=== PATIENT | female | born 1950 | race Caucasian/White ===

== ENCOUNTER 2021-11-26 07:36 | Emergency (ER) | payer OTHER, SELFPAY ==
--- NOTE | 2021-11-26 | CRLHL7_ITS ---
For Patients: As a result of the Century Cures Act, medical imaging exams and procedure reports are released immediately into your electronic medical record. You may view this report before your referring provider. If you have questions, please contact your health care provider. INDICATION: Altered mental status. TECHNIQUE: CT of the head without contrast. Coronal and sagittal reformats are included. COMPARISON: No comparisons. FINDINGS: Postsurgical changes of bilateral frontal approach electrode stimulators, with tips terminate in the approximate region of the subthalamic nuclei. Mild gliosis along the electrode tracts. Small bilateral kathy hole sites. Right suboccipital craniectomy site is also noted. Beam hardening artifact from metallic hardware limits evaluation of adjacent regions. Accounting for this, no evidence of acute infarct. No loss of de la garza white matter differentiation. No hyperdense vessels to suggest intracranial thrombus. No acute intracranial hemorrhage. No mass effect or midline shift. No hydrocephalus or extra-axial collections. Scattered white matter hypoattenuation, typical for chronic microvascular ischemic change. Mild to moderate generalized parenchymal volume loss. No acute osseous abnormalities. Mastoid air cells and paranasal sinuses are clear. Normal soft tissues. IMPRESSION: 1. Examination mildly limited by beam hardening artifact from metallic hardware detailed above. Allowing for this, no acute intracranial pathology. Please note that all CT scans at this facility use dose modulation, iterative reconstruction, and/or weight-based dosing when appropriate to reduce radiation dose to as low as reasonably achievable. Dictated by Gavin Cai MD @ 11/26/2021 8:16:57 AM (Electronically Signed)
--- NOTE | 2021-11-26 07:38 | ED_ITS ---
HPI - Neuro Symptoms/Deficit General Time Seen by Provider: 07:32 <Sharonda Titus MD - Last Filed: 12/01/21 02:37> Date Seen: 11/26/21 <Sharonda Titus MD - Last Filed: 12/01/21 02:37> Chief Complaint: Neuro Symptoms/Altered Deficit <Sharonda Titus MD - Last Filed: 12/01/21 02:37> Stated Complaint: Stroke <Sharonda Titus MD - Last Filed: 12/01/21 02:37> Time Seen by Provider: 11/26/21 07:38 <Sharonda Titus MD - Last Filed: 12/01/21 02:37> Source: patient <Sharonda Titus MD - Last Filed: 12/01/21 02:37> Mode of arrival: EMS <Sharonda Titus MD - Last Filed: 12/01/21 02:37> Limitations: no limitations <Sharonda Titus MD - Last Filed: 12/01/21 02:37> History of Present Illness HPI Narrative: Iliana is a 71-year-old female with a history of Parkinson's, brain stimulator and fall 1 month ago who is brought to the [facility] by EMS for evaluation regarding left-sided weakness difficulty with hand finisher strength bilaterally and right facial droop. EMS notes that history was very hard to obtain. states that Jada usually walks around but Iliana states that everything is fairly normal. Upon her arrival in the emergency room she states that this morning when she woke up she could not hand finisher with either of her hands and that she does have a history of pain on her left wrist. She notes that she is better right now. She states that it is time for her to take her Parkinson's medications. She has not had any recent cough cold congestion. She tells me that she cannot have IV contrast or an MRI. She is allergic to IV contrast and because of her nerve stimulator she cannot have an MRI. <Sharonda Titus MD - Last Filed: 12/01/21 02:37> Related Data Home Medications: Home Medications Medication Instructions Recorded Confirmed carbidopa 25 mg-levodopa 100 mg 0.5 tab PO Q2H 11/26/21 11/26/21 tablet carbidopa ER 23.75 mg-levodopa 95 2 cap PO Q2H 11/26/21 11/26/21 mg capsule,extended release (Rytary) clonazepam 1 mg tablet 0.5 mg PO HS PRN 11/26/21 11/26/21 cyclosporine 0.05 % eye drops in a drp OPHTHALMIC (EYE) DAILY 11/26/21 dropperette (Restasis) lorazepam 1 mg tablet PO DAILY 11/26/21 polyethylene glycol 3350 17 17 g PO DAILY PRN 11/26/21 11/26/21 gram/dose oral powder <Sharonda Titus MD - Last Filed: 12/01/21 02:37> Allergies/Adverse Reactions: Allergies Allergy/AdvReac Type Severity Reaction Status Date / Time iodine Allergy Verified 11/26/21 07:53 Sulfa (Sulfonamide Allergy Verified 11/26/21 07:53 Antibiotics) <Sharonda Titus MD - Last Filed: 12/01/21 02:37> [facility] Social History: Social History Smoking Status: Former smoker Do you use any of these nicotine containing products: None Second hand tobacco smoke exposure: No How often do you have a drink containing alcohol: monthly or less How many standard drinks containing alcohol do you have on a typical day: 1 or 2 How often do you have six or more drinks on one occasion: Never AUDIT-C Alcohol total score: 1 Non-prescribed substance use: denies use service: No <Sharonda Titus MD - Last Filed: 12/01/21 02:37> Exam Const: Vital Signs, click to edit/add: Vital Signs - 24 hr 11/26/21 07:44 Temperature 97.3 F L Pulse Rate [Left P ulse Oximeter] 80 Respiratory Rate 16 Blood Pressure [Ri ght Upper Arm] 106/68 Pulse Oximetry 96 <Sharonda Titus MD - Last Filed: 12/01/21 02:37> Vital Signs, click to edit/add: Vital Signs - 24 hr 11/26/21 07:44 Temperature 97.3 F L Pulse Rate [Left P ulse Oximeter] 80 Respiratory Rate 16 Blood Pressure [Ri ght Upper Arm] 106/68 Pulse Oximetry 96 <Roosevelt Hackett MD - Last Filed: 11/26/21 08:36> Course Vital Signs Vital signs: Initial Vital Signs Temperature 97.3 F L 11/26/21 07:44 Temperature Source Temporal Artery Scan 11/26/21 07:44 Pulse Rate 80 11/26/21 07:44 Pulse Rhythm 11/26/21 07:44 Pulse Strength 3+ Normal 11/26/21 07:44 Respiratory Rate 16 11/26/21 07:44 Blood Pressure 106/68 11/26/21 07:44 Blood Pressure Mean 80 11/26/21 07:44 Blood Pressure Position Supine 11/26/21 07:44 Pulse Oximetry 96 11/26/21 07:44 Oxygen Delivery Method 11/26/21 07:44 Vital Signs Temperature 97.3 F L 11/26/21 07:44 Pulse Rate 80 11/26/21 07:44 Respiratory Rate 16 11/26/21 07:44 Blood Pressure 106/68 11/26/21 07:44 Pulse Oximetry 96 11/26/21 07:44 Temperature 97.3 F L 11/26/21 07:44 Pulse Rate 95 11/26/21 09:30 Respiratory Rate 20 11/26/21 09:30 Blood Pressure 111/69 11/26/21 09:30 Pulse Oximetry 97 11/26/21 09:30 <Sharonda Titus MD - Last Filed: 12/01/21 02:37> Initial Vital Signs Temperature 97.3 F L 11/26/21 07:44 Temperature Source Temporal Artery Scan 11/26/21 07:44 Pulse Rate 80 11/26/21 07:44 Pulse Rhythm 11/26/21 07:44 Pulse Strength 3+ Normal 11/26/21 07:44 Respiratory Rate 16 11/26/21 07:44 Blood Pressure 106/68 11/26/21 07:44 Blood Pressure Mean 80 11/26/21 07:44 Blood Pressure Position Supine 11/26/21 07:44 Pulse Oximetry 96 11/26/21 07:44 Oxygen Delivery Method 11/26/21 07:44 Vital Signs Temperature 97.3 F L 11/26/21 07:44 Pulse Rate 80 11/26/21 07:44 Respiratory Rate 16 11/26/21 07:44 Blood Pressure 106/68 11/26/21 07:44 Pulse Oximetry 96 11/26/21 07:44 Temperature 97.3 F L 11/26/21 07:44 Pulse Rate 95 11/26/21 09:30 Respiratory Rate 20 11/26/21 09:30 Blood Pressure 111/69 11/26/21 09:30 Pulse Oximetry 97 11/26/21 09:30 <Roosevelt Hackett MD - Last Filed: 11/26/21 08:36> MDM - Neuro Symptoms/Deficit MDM Narrative Medical decision making narrative: X-ray by my read shows a Colles type fracture with distal radial fracture and ulnar styloid, minimally displaced dorsally. The procedure because of its position will put her in a splint thumb spica and have her follow up with Ortho in 3-4 days. Lanse given orally now will proceed write a prescription for Lanse. May use Advil as well, light activity, splint precautions, the splint was applied by myself a thumb spica splint with Orthoglass and Julius wrap. <Roosevelt Hackett MD - Last Filed: 11/26/21 08:36> Lab Data Labs: Lab Results 11/26/21 11/26/21 11/26/21 Range/Units 08:33 08:33 08:33 WBC 5.85 (4.50-11.00) K/uL RBC 4.32 (4.00-5.20) m/uL Hgb 13.3 (12.0-16.0) gm/dL Hct 40.8 (33.0-51.0) % MCV 94 (80-100) fL MCH 31 (26-34) pg MCHC 33 (32-36) gm/dL RDW Coeff of Valeria 13.8 (11.5-15.5) % Plt Count 233 (140-440) K/uL Neut % (Auto) 54.8 (42.0-72.0) % Lymph % (Auto) 35.6 (20-44) % Stephenson % (Auto) 7.2 (0.0-11.0) % Eos % (Auto) 1.9 (0.0-7.0) % Baso % (Auto) 0.3 (0.0-3.0) % Neut # (Auto) 3.21 (1.7-7.0) K/uL Lymph # (Auto) 2.08 (0.90-2.90) K/uL Stephenson # (Auto) 0.40 (0.00-0.90) K/UL Eos # (Auto) 0.11 (0.00-0.50) K/uL Baso # (Auto) 0.02 (0.00-0.30) K/uL Abs Immat Gran (auto) 0.01 (0.00-0.30) K/uL Sodium 140 (135-149) mmol/L Potassium 3.7 (3.6-5.1) mmol/L Chloride 107 (96-114) mmol/L Carbon Dioxide 30 (20-32) mmol/L BUN 29 (7-30) mg/dL Creatinine 0.6 (0.5-1.5) mg/dL Estimated Creat Clear 35.61 Estimated GFR 97 ml/min Glucose 88 (60-115) mg/dL Calcium 9.5 (8.4-10.6) mg/dL SARS-CoV-2 (PCR) (Negative) POC Troponin I 0.00 L (0.01-0.04) ng/ml 11/26/21 Range/Units 09:00 WBC (4.50-11.00) K/uL RBC (4.00-5.20) m/uL Hgb (12.0-16.0) gm/dL Hct (33.0-51.0) % MCV (80-100) fL MCH (26-34) pg MCHC (32-36) gm/dL RDW Coeff of Valeria (11.5-15.5) % Plt Count (140-440) K/uL Neut % (Auto) (42.0-72.0) % Lymph % (Auto) (20-44) % Stephenson % (Auto) (0.0-11.0) % Eos % (Auto) (0.0-7.0) % Baso % (Auto) (0.0-3.0) % Neut # (Auto) (1.7-7.0) K/uL Lymph # (Auto) (0.90-2.90) K/uL Stephenson # (Auto) (0.00-0.90) K/UL Eos # (Auto) (0.00-0.50) K/uL Baso # (Auto) (0.00-0.30) K/uL Abs Immat Gran (auto) (0.00-0.30) K/uL Sodium (135-149) mmol/L Potassium (3.6-5.1) mmol/L Chloride (96-114) mmol/L Carbon Dioxide (20-32) mmol/L BUN (7-30) mg/dL Creatinine (0.5-1.5) mg/dL Estimated Creat Clear Estimated GFR ml/min Glucose (60-115) mg/dL Calcium (8.4-10.6) mg/dL SARS-CoV-2 (PCR) Negative SARS-CoV-2 (Negative) POC Troponin I (0.01-0.04) ng/ml <Sharonda Titus MD - Last Filed: 12/01/21 02:37> Lab Results 11/26/21 11/26/21 11/26/21 Range/Units 08:33 08:33 08:33 WBC 5.85 (4.50-11.00) K/uL RBC 4.32 (4.00-5.20) m/uL Hgb 13.3 (12.0-16.0) gm/dL Hct 40.8 (33.0-51.0) % MCV 94 (80-100) fL MCH 31 (26-34) pg MCHC 33 (32-36) gm/dL RDW Coeff of Valeria 13.8 (11.5-15.5) % Plt Count 233 (140-440) K/uL Neut % (Auto) 54.8 (42.0-72.0) % Lymph % (Auto) 35.6 (20-44) % Stephenson % (Auto) 7.2 (0.0-11.0) % Eos % (Auto) 1.9 (0.0-7.0) % Baso % (Auto) 0.3 (0.0-3.0) % Neut # (Auto) 3.21 (1.7-7.0) K/uL Lymph # (Auto) 2.08 (0.90-2.90) K/uL Stephenson # (Auto) 0.40 (0.00-0.90) K/UL Eos # (Auto) 0.11 (0.00-0.50) K/uL Baso # (Auto) 0.02 (0.00-0.30) K/uL Abs Immat Gran (auto) 0.01 (0.00-0.30) K/uL Sodium 140 (135-149) mmol/L Potassium 3.7 (3.6-5.1) mmol/L Chloride 107 (96-114) mmol/L Carbon Dioxide 30 (20-32) mmol/L BUN 29 (7-30) mg/dL Creatinine 0.6 (0.5-1.5) mg/dL Estimated Creat Clear 35.61 Estimated GFR 97 ml/min Glucose 88 (60-115) mg/dL Calcium 9.5 (8.4-10.6) mg/dL SARS-CoV-2 (PCR) (Negative) POC Troponin I 0.00 L (0.01-0.04) ng/ml 11/26/21 Range/Units 09:00 WBC (4.50-11.00) K/uL RBC (4.00-5.20) m/uL Hgb (12.0-16.0) gm/dL Hct (33.0-51.0) % MCV (80-100) fL MCH (26-34) pg MCHC (32-36) gm/dL RDW Coeff of Valeria (11.5-15.5) % Plt Count (140-440) K/uL Neut % (Auto) (42.0-72.0) % Lymph % (Auto) (20-44) % Stephenson % (Auto) (0.0-11.0) % Eos % (Auto) (0.0-7.0) % Baso % (Auto) (0.0-3.0) % Neut # (Auto) (1.7-7.0) K/uL Lymph # (Auto) (0.90-2.90) K/uL Stephenson # (Auto) (0.00-0.90) K/UL Eos # (Auto) (0.00-0.50) K/uL Baso # (Auto) (0.00-0.30) K/uL Abs Immat Gran (auto) (0.00-0.30) K/uL Sodium (135-149) mmol/L Potassium (3.6-5.1) mmol/L Chloride (96-114) mmol/L Carbon Dioxide (20-32) mmol/L BUN (7-30) mg/dL Creatinine (0.5-1.5) mg/dL Estimated Creat Clear Estimated GFR ml/min Glucose (60-115) mg/dL Calcium (8.4-10.6) mg/dL SARS-CoV-2 (PCR) Negative SARS-CoV-2 (Negative) POC Troponin I (0.01-0.04) ng/ml <Roosevelt Hackett MD - Last Filed: 11/26/21 08:36> Discharge Plan Discharge Clinical Impression: Throat tightness, Parkinson's disease <Sharonda Titus MD - Last Filed: 12/01/21 02:37> Patient Disposition: Home w/ Parent or Adult <Sharonda Titus MD - Last Filed: 12/01/21 02:37> Condition: Improved <Sharonda Titus MD - Last Filed: 12/01/21 02:37> Additional Instructions: continue home meds, recheck neurologist as scheduled <Sharonda Titus MD - Last Filed: 12/01/21 02:37> Activity Level: No Restrictions <Sharonda Titus MD - Last Filed: 12/01/21 02:37> No Restrictions <Roosevelt Hackett MD - Last Filed: 11/26/21 08:36> Discharge Diet: Regular <Sharonda Titus MD - Last Filed: 12/01/21 02:37> Regular <Roosevelt Hackett MD - Last Filed: 11/26/21 08:36> Prescriptions: No Action carbidopa-levodopa 25-100 mg tablet 0.5 tab PO Q2H 0RF Label Comments: TAKE ONE-HALF TABLET BY MOUTH EVERY 2 HOURS WHILE AWAKE AND 1-2 TIMES OVERNIGHT NEEDED. UP TO 10 TIMES/DAY Rytary 23.75-95 mg capsule, extended release 2 cap PO Q2H 0RF Label Comments: TAKE 2 CAPSULES BY MOUTH EVERY 2 HOURS WHILE AWAKE AND 1-2 TIMES OVERNIGHT NEEDED. UP TO 10 TIMES/DAY lorazepam 1 mg tablet PO DAILY 0RF Label Comments: TAKE 1/4 TO 1 TABLET BY MOUTH DAILY NEEDED clonazepam 1 mg tablet 0.5 mg PO HS PRN0RF Label Comments: TAKE 1/2 TO 1 TABLET BY MOUTH AT BEDTIME NEEDED FOR SLEEP cyclosporine [Restasis] 0.05 % dropperette OPHTHALMIC (EYE) DAILY 0RF Label Comments: INSTILL 1 DROP TWICE DAILY TO BOTH EYES polyethylene glycol 3350 17 gram/dose powder 17 g PO DAILY PRN0RF <Sharonda Titus MD - Last Filed: 12/01/21 02:37> Follow Up/Referrals: Kaykay Carranza MD [Primary Care Provider] - <Sharonda Titus MD - Last Filed: 12/01/21 02:37> Stand Alone Forms: MyHealth Info Instructions <Sharonda Titus MD - Last Filed: 12/01/21 02:37>
[2021-11-26 07:44] VITALS: BP 106/68; PULSE 80; RESP 16; TEMP 36.3; O2SAT 96; BMI 18.1
[2021-11-26 08:00] VITALS: BP 108/72; PULSE 78; RESP 16; O2SAT 96
[2021-11-26 08:10] VITALS: BP 127/81; PULSE 80; RESP 20; O2SAT 97
--- NOTE | 2021-11-26 08:13 | ED.NURSE ---
Pt given ice chips, ok per Dr Titus. Up to bsc without assist, urine collected. Dr Marind in to speak with pt.
[2021-11-26 08:20] VITALS: BP 109/67; PULSE 80; RESP 16; O2SAT 97
--- NOTE | 2021-11-26 08:20 | ED_ITS ---
HPI - General Adult General Time Seen by Provider: 08:20 Date Seen: 11/26/21 Chief complaint: Neuro Symptoms/Altered Deficit Stated complaint: Stroke Time Seen by Provider: 11/26/21 07:38 Source: patient Mode of arrival: EMS Limitations: no limitations History of Present Illness HPI narrative: PATIENT IS A 71 WHITE FEMALE WITH PARKINSON'S HAS A DEEP BRAIN STIMULATOR, and has received her care at the [facility]. She also has significant parkinsonism as mention. She has had episodes were she has throat tightening or what sounds like muscle spasm in her neck, typically she wakes up with this. 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 She and her hus band report this feels about the same, her throat tightening is improved, she had no chest pain no shortness of breath no nausea vomiting diaphoresis. The patient has not had are not had a heart history. She has no focal neurologic deficit she feels back to normal as mentioned. Bat exchange of hand off CT scan of the head was done as well as laboratories and EKG ordered. Patient did take lorazepam last night and typically that helps her, she typically wakes up with this symptom, this has happened many times. She has a meeting with her neurologist upcoming in the next week to 10 days. Related Data Home Medications Medication Instructions Recorded Confirmed carbidopa 25 mg-levodopa 100 mg 0.5 tab PO Q2H 11/26/21 11/26/21 tablet carbidopa ER 23.75 mg-levodopa 95 2 cap PO Q2H 11/26/21 11/26/21 mg capsule,extended release (Rytary) clonazepam 1 mg tablet 0.5 mg PO HS PRN 11/26/21 11/26/21 cyclosporine 0.05 % eye drops in a drp OPHTHALMIC (EYE) DAILY 11/26/21 dropperette (Restasis) lorazepam 1 mg tablet PO DAILY 11/26/21 polyethylene glycol 3350 17 17 g PO DAILY PRN 11/26/21 11/26/21 gram/dose oral powder Allergies Allergy/AdvReac Type Severity Reaction Status Date / Time iodine Allergy Verified 11/26/21 07:53 Sulfa (Sulfonamide Allergy Verified 11/26/21 07:53 Antibiotics) Review of Systems Status of ROS: Reports: 10 or more systems reviewed and unremarkable except as noted in History and below [facility] Social History Smoking Status: Former smoker Do you use any of these nicotine containing products: None Second hand tobacco smoke exposure: No How often do you have a drink containing alcohol: monthly or less How many standard drinks containing alcohol do you have on a typical day: 1 or 2 How often do you have six or more drinks on one occasion: Never AUDIT-C Alcohol total score: 1 Non-prescribed substance use: denies use service: No Exam Narrative: Exam Narrative: Objective: Vital signs unremarkable, the patient is in no apparent distress, noncyanotic HEENT shows mild right-sided facial weakness, consistent with what her prior clinical situation has been status post acoustic neuroma removal. Neck supple for range of motion Heart rhythm regular 2/6 systolic ejection murmur Chest is clear Abdomen benign soft Extremities are no edema neurologic nonfocal Skin is unremarkable, warm and dry Const: Vital Signs, click to edit/add: Vital Signs - 24 hr 11/26/21 07:44 Temperature 97.3 F L Pulse Rate [Left P ulse Oximeter] 80 Respiratory Rate 16 Blood Pressure [Ri ght Upper Arm] 106/68 Pulse Oximetry 96 Course Vital Signs Vital signs: Initial Vital Signs Temperature 97.3 F L 11/26/21 07:44 Temperature Source Temporal Artery Scan 11/26/21 07:44 Pulse Rate 80 11/26/21 07:44 Pulse Rhythm 11/26/21 07:44 Pulse Strength 3+ Normal 11/26/21 07:44 Respiratory Rate 16 11/26/21 07:44 Blood Pressure 106/68 11/26/21 07:44 Blood Pressure Mean 80 11/26/21 07:44 Blood Pressure Position Supine 11/26/21 07:44 Pulse Oximetry 96 11/26/21 07:44 Oxygen Delivery Method 11/26/21 07:44 Vital Signs Temperature 97.3 F L 11/26/21 07:44 Pulse Rate 80 11/26/21 07:44 Respiratory Rate 16 11/26/21 07:44 Blood Pressure 106/68 11/26/21 07:44 Pulse Oximetry 96 11/26/21 07:44 Temperature 97.3 F L 11/26/21 07:44 Pulse Rate 80 11/26/21 07:44 Respiratory Rate 16 11/26/21 07:44 Blood Pressure 106/68 11/26/21 07:44 Pulse Oximetry 96 11/26/21 07:44 Medical Decision Making MDM Narrative Medical decision making narrative: Patient has what sounds like muscle spasm in her neck likely cricopharyngeal muscle spasm, she has no residual symptoms at this time. She had no chest pain breathing problem, fevers or chills. The patient feels like she would like to go home and consult with her neurologist defer tests are normal. Due to her tremor and Parkinson's is difficult to get an accurate EKG, but will put her on telemetry will order a point of care troponin CBC Chem profile and follow up the CT scan when it is available. The patient's head CT is limited by artifact but is negative for acute findings, her laboratory studies look reassuring, her troponin is negative. Were unable to get an EKG due the patient's neurostimulator in the amount of artifact is present, but her telemetry looks reassuring. Her throat symptoms have resolved will allow to go home resume wrists same medications and update her neurologist as planned. Thanks Lab Data Labs: Lab Results 11/26/21 11/26/21 11/26/21 Range/Units 08:33 08:33 08:33 WBC 5.85 (4.50-11.00) K/uL RBC 4.32 (4.00-5.20) m/uL Hgb 13.3 (12.0-16.0) gm/dL Hct 40.8 (33.0-51.0) % MCV 94 (80-100) fL MCH 31 (26-34) pg MCHC 33 (32-36) gm/dL RDW Coeff of Valeria 13.8 (11.5-15.5) % Plt Count 233 (140-440) K/uL Neut % (Auto) 54.8 (42.0-72.0) % Lymph % (Auto) 35.6 (20-44) % [place] % (Auto) 7.2 (0.0-11.0) % Eos % (Auto) 1.9 (0.0-7.0) % Baso % (Auto) 0.3 (0.0-3.0) % Neut # (Auto) 3.21 (1.7-7.0) K/uL Lymph # (Auto) 2.08 (0.90-2.90) K/uL [place] # (Auto) 0.40 (0.00-0.90) K/UL Eos # (Auto) 0.11 (0.00-0.50) K/uL Baso # (Auto) 0.02 (0.00-0.30) K/uL Abs Immat Gran (auto) 0.01 (0.00-0.30) K/uL Sodium 140 (135-149) mmol/L Potassium 3.7 (3.6-5.1) mmol/L Chloride 107 (96-114) mmol/L Carbon Dioxide 30 (20-32) mmol/L BUN 29 (7-30) mg/dL Creatinine 0.6 (0.5-1.5) mg/dL Estimated Creat Clear 35.61 Estimated GFR 97 ml/min Glucose 88 (60-115) mg/dL Calcium 9.5 (8.4-10.6) mg/dL POC Troponin I 0.00 L (0.01-0.04) ng/ml Discharge Plan Discharge Clinical Impression: Throat tightness, Parkinson's disease Patient Disposition: Home w/ Parent or Adult Condition: Improved Additional Instructions: continue home meds, recheck neurologist as scheduled Activity Level: No Restrictions Discharge Diet: Regular Prescriptions: No Action carbidopa-levodopa 25-100 mg tablet 0.5 tab PO Q2H 0RF Label Comments: TAKE ONE-HALF TABLET BY MOUTH EVERY 2 HOURS WHILE AWAKE AND 1-2 TIMES OVERNIGHT NEEDED. UP TO 10 TIMES/DAY Rytary 23.75-95 mg capsule, extended release 2 cap PO Q2H 0RF Label Comments: TAKE 2 CAPSULES BY MOUTH EVERY 2 HOURS WHILE AWAKE AND 1-2 TIMES OVERNIGHT NEEDED. UP TO 10 TIMES/DAY lorazepam 1 mg tablet PO DAILY 0RF Label Comments: TAKE 1/4 TO 1 TABLET BY MOUTH DAILY NEEDED clonazepam 1 mg tablet 0.5 mg PO HS PRN0RF Label Comments: TAKE 1/2 TO 1 TABLET BY MOUTH AT BEDTIME NEEDED FOR SLEEP cyclosporine [Restasis] 0.05 % dropperette OPHTHALMIC (EYE) DAILY 0RF Label Comments: INSTILL 1 DROP TWICE DAILY TO BOTH EYES polyethylene glycol 3350 17 gram/dose powder 17 g PO DAILY PRN0RF Follow Up/Referrals: Kaykay Carranza MD [Primary Care Provider] - Stand Alone Forms: MyHealth Info Instructions
--- NOTE | 2021-11-26 08:50 | ED.NURSE ---
Pt took her own meds. OK per Dr Harris.
[2021-11-26 08:55] LABS: Basophils Absolute Auto 0.02 K/uL (0.00-0.30); Basophils Percent Auto 0.3 % (0.0-3.0); Eosinophils Absolute Auto 0.11 K/uL (0.00-0.50); Eosinophils Percent Auto 1.9 % (0.0-7.0); Hematocrit 40.8 % (33.0-51.0); Hemoglobin* 13.3 gm/dL (12.0-16.0); Immature Granulocytes Abs Auto 0.01 K/uL (0.00-0.30); Lymphocytes Absolute Auto 2.08 K/uL (0.90-2.90); Lymphocytes Percent Auto 35.6 % (20-44); Mean Corpuscular HGB Conc 33 gm/dL (32-36); Mean Corpuscular Hemoglobin 31 pg (26-34); Mean Corpuscular Volume 94 fL (80-100); Monocytes Percent Auto 7.2 % (0.0-11.0); Neutrophils Absolute Auto 3.21 K/uL (1.7-7.0); Neutrophils Percent Auto 54.8 % (42.0-72.0); Platelet Count* 233 K/uL (140-440); RDW Coefficient of Variation % 13.8 % (11.5-15.5); Red Blood Count 4.32 m/uL (4.00-5.20); White Blood Count* 5.85 K/uL (4.50-11.00)
[2021-11-26 08:58] LABS: Slide Review Reflex No
[2021-11-26 09:00] VITALS: BP 116/67; PULSE 95; RESP 16; O2SAT 99
[2021-11-26 09:07] LABS: Chloride* 107 mmol/L (96-114); Sodium* 140 mmol/L (135-149)
[2021-11-26 09:08] LABS: Potassium* 3.7 mmol/L (3.6-5.1)
[2021-11-26 09:10] LABS: Creatinine* 0.6 mg/dL (0.5-1.5); Est. Creatinine Clearance* 35.61; Estimated Glomerular Filt Rate 97 ml/min
[2021-11-26 09:11] LABS: Blood Urea Nitrogen* 29 mg/dL (7-30); Calcium* 9.5 mg/dL (8.4-10.6); Carbon Dioxide* 30 mmol/L (20-32); Glucose* 88 mg/dL (60-115)
[2021-11-26 09:30] VITALS: BP 111/69; PULSE 95; RESP 20; O2SAT 97
[2021-11-26 11:18] LABS: SARS PCR* Negative SARS-CoV-2 (Negative)
== END 2021-11-26 09:50 | disposition home or self-care (01) ==
PROVIDERS: Emergency Provider Family Medicine; PCP Family Medicine
DX: R07.0 Pain in throat (principal); G20 Parkinson's disease
CPT/HCPCS: 36415; 70450; 80048; 84484; 85025; 87635; 93005; 99284; 99285; A0425; A0427

== ENCOUNTER 2021-11-28 13:00 | Outpatient (RCR) | payer OTHER, SELFPAY | END 2022-10-26 09:00 | disposition home or self-care (01) | PROVIDERS: PCP Family Medicine; Visit Provider Orthopaedic Surgery Sports Medicine | DX: G20 Parkinson's disease (principal); G24.9 Dystonia, unspecified; Z51.89 Encounter for other specified aftercare | CPT/HCPCS: 97035; 97140 ==

== ENCOUNTER 2022-09-23 05:14 | Outpatient (CLI) | payer OTHER, SELFPAY | END 2022-09-23 05:15 | disposition home or self-care (01) | LOC: AMB 10-11 03:08 | PROVIDERS: PCP Family Medicine; Visit Provider Family Medicine | DX: R06.09 Other forms of dyspnea (principal) | CPT/HCPCS: A0998 ==

== ENCOUNTER 2023-01-08 17:57 | Emergency (ER) | payer OTHER, SELFPAY ==
[2023-01-08 18:14] VITALS: BP 113/70; PULSE 91; RESP 18; TEMP 36.7; O2SAT 99; BMI 18.9
[2023-01-08] MEDS: LORazepam 0.5 MG TABLET PO (19:31)
--- NOTE | 2023-01-08 19:36 | ED.GENADULT ---
HPI - General Adult General Date Seen: 01/08/23 Chief complaint: Shortness of Breath/Dyspnea Stated complaint: Short of breath Time Seen by Provider: 01/08/23 19:04 Source: patient and family Mode of arrival: wheelchair Limitations: no limitations History of Present Illness HPI narrative: Patient is a 72-year-old female with Parkinson's disease who comes in with a sensation that she is being choked. She does not have chest pain. She does not feel short of breath. There is no pain with deep inspiration. This is been an issue for her previously and generally resolves with use of lorazepam. She has run out of her lorazepam but has tried a dose of Klonopin today without much relief. She has had no difficulty swallowing food or her own saliva. She is struggling with tremor and dystonia in her feet as well. The patient is concerned that she might be having a heart attack because she has heard that women sometimes do not get any symptoms. Anxiety is certainly playing a role here. Related Data Home Medications Medication Instructions Recorded Confirmed carbidopa 25 mg-levodopa 100 mg 0.5 tab PO Q2H 11/26/21 11/26/21 tablet carbidopa ER 23.75 mg-levodopa 95 2 cap PO Q2H 11/26/21 11/26/21 mg capsule,extended release (Rytary) clonazepam 1 mg tablet 0.5 mg PO HS PRN 11/26/21 11/26/21 cyclosporine 0.05 % eye drops in a drp ophthalmic (eye) DAILY 11/26/21 dropperette (Restasis) lorazepam 1 mg tablet PO DAILY 11/26/21 polyethylene glycol 3350 17 17 g PO DAILY PRN 11/26/21 11/26/21 gram/dose oral powder Allergies Allergy/AdvReac Type Severity Reaction Status Date / Time iodine Allergy Verified 11/26/21 07:53 Sulfa (Sulfonamide Allergy Verified 11/26/21 07:53 Antibiotics) Review of Systems Narrative: Review of systems is notable for some chronic constipation and anxiety. Her Parkinson's disease is managed by a a neurologist in the [facility]. 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 Review of systems in all other areas is noted to be negative. [facility] Social History Smoking Status: Former smoker Do you use any of these nicotine containing products: None Second hand tobacco smoke exposure: No How often do you have a drink containing alcohol: monthly or less How many standard drinks containing alcohol do you have on a typical day: 1 or 2 How often do you have six or more drinks on one occasion: Never AUDIT-C Alcohol total score: 1 Non-prescribed substance use: denies use service: No Exam Narrative: Exam Narrative: Vitals noted. She is in no respiratory distress. HEENT: Conjunctiva clear. Tympanic membranes are pearly white bilaterally. Posterior pharynx is clear without erythema or exudate. Neck is supple without adenopathy. She has full range of motion of the cervical spine. There are no palpable muscle spasms. Lungs: Clear to auscultation in all robert. No wheezes, rales, rhonchi. Heart: Regular rate and rhythm without murmur. Abdomen: Soft and nontender. No guarding, rigidity, rebound. Bowel sounds are normal. No palpable masses. Extremities: No cyanosis or edema. Good distal pulses. Skin: No abnormalities noted of the exposed skin. Neurologic: Awake, alert, fully oriented. She has restlessness and tremor of her arms and legs. Some cogwheeling. She is able to ambulate. No focal weakness. Const: Vital Signs, click to edit/add: Vital Signs - 24 hr 01/08/23 18:14 Temperature 98.0 F Pulse Rate [Right Pulse Oximeter] 91 Respiratory Rate 18 Blood Pressure [Ri ght Upper Arm] 113/70 Pulse Oximetry 99 Oxygen Delivery Me thod Room Air Course Course Hospital Course: Patient was seen and examined. She is given lorazepam 0.5 mg orally with good relief of her ?choking sensation?. Labs were ordered including CBC, BMP, troponin which were all negative. Her D-dimer is weakly positive at 0.58. I attempted to do a CT of her chest to rule out pulmonary embolism but she has an iodine allergy and did not want to wait around for the pre treatment required. I think it is a reasonable decision as I have a low index of suspicion regarding pulmonary embolism. She is not tachypneic, tachycardic, hypoxic. There is no pleuritic component to her chest pain. Vital Signs Vital signs: Initial Vital Signs Temperature 98.0 F 01/08/23 18:14 Temperature Source Temporal Artery Scan 01/08/23 18:14 Pulse Rate 91 01/08/23 18:14 Pulse Rhythm Regular 01/08/23 18:14 Respiratory Rate 18 01/08/23 18:14 Blood Pressure 113/70 01/08/23 18:14 Blood Pressure Mean 84 01/08/23 18:14 Blood Pressure Position Sitting 01/08/23 18:14 Pulse Oximetry 99 01/08/23 18:14 Oxygen Delivery Method Room Air 01/08/23 18:14 Vital Signs Temperature 98.0 F 01/08/23 18:14 Pulse Rate 91 01/08/23 18:14 Respiratory Rate 18 01/08/23 18:14 Blood Pressure 113/70 01/08/23 18:14 Pulse Oximetry 99 01/08/23 18:14 Oxygen Delivery Method Room Air 01/08/23 18:14 Temperature 98.0 F 01/08/23 18:14 Pulse Rate 91 01/08/23 18:14 Respiratory Rate 18 01/08/23 18:14 Blood Pressure 113/70 01/08/23 18:14 Pulse Oximetry 99 01/08/23 18:14 Oxygen Delivery Method Room Air 01/08/23 18:14 Medical Decision Making Lab Data Labs: Lab Results 01/08/23 Range/Units 19:44 WBC 6.55 (4.50-11.00) K/uL RBC 4.60 (4.00-5.20) m/uL Hgb 14.0 (12.0-16.0) gm/dL Hct 43.3 (33.0-51.0) % MCV 94 (80-100) fL MCH 30 (26-34) pg MCHC 32 (32-36) gm/dL RDW Coeff of Valeria 14.4 (11.5-15.5) % Plt Count 261 (140-440) K/uL Neut % (Auto) 58.6 (42.0-72.0) % Lymph % (Auto) 32.7 (20-44) % [place] % (Auto) 6.7 (0.0-11.0) % Eos % (Auto) 1.1 (0.0-7.0) % Baso % (Auto) 0.3 (0.0-3.0) % Neut # (Auto) 3.84 (1.7-7.0) K/uL Lymph # (Auto) 2.14 (0.90-2.90) K/uL [place] # (Auto) 0.40 (0.00-0.90) K/UL Eos # (Auto) 0.07 (0.00-0.50) K/uL Baso # (Auto) 0.02 (0.00-0.30) K/uL Abs Immat Gran (auto) 0.04 (0.00-0.30) K/uL Imm/Tot Granulo (auto) 0.6 % D-Dimer Quant (PE/DVT) 0.58 H (0.00-0.50) ug/ml Sodium 138 (135-149) mmol/L Potassium 4.0 (3.6-5.1) mmol/L Chloride 105 (96-114) mmol/L Carbon Dioxide 28 (20-32) mmol/L Anion Gap 5 L (7-15) mEq/L BUN 24 (7-30) mg/dL Creatinine 0.6 (0.5-1.5) mg/dL Estimated Creat Clear 36.95 Estimated GFR 96 ml/min Glucose 99 (60-115) mg/dL Calcium 9.9 (8.4-10.6) mg/dL Troponin I < 0.01 L (0.01-0.04) ng/mL Discharge Plan Discharge Clinical Impression: Cervical dystonia Patient Disposition: Home, Self-Care Condition: Improved Additional Instructions: Continue all current medications. Use lorazepam 0.5 mg every 8 hours as needed for a choking feeling. Return to the emergency department for shortness of breath, racing heart, pain with deep breathing. Your D-dimer test was minimally elevated and we did not do a CT of your chest because of your iodine allergy. I doubt that you have a pulmonary embolism but I would want you to return to the emergency department if you have any of the above symptoms. Discuss the choking feeling with your neurologist SARAH. Prescriptions: No Action carbidopa-levodopa 25-100 mg tablet 0.5 tab PO Q2H Patient Comments: TAKE ONE-HALF TABLET BY MOUTH EVERY 2 HOURS WHILE AWAKE AND 1-2 TIMES OVERNIGHT NEEDED. UP TO 10 TIMES/DAY Rytary 23.75-95 mg capsule, extended release 2 cap PO Q2H Patient Comments: TAKE 2 CAPSULES BY MOUTH EVERY 2 HOURS WHILE AWAKE AND 1-2 TIMES OVERNIGHT NEEDED. UP TO 10 TIMES/DAY lorazepam 1 mg tablet PO DAILY Patient Comments: TAKE 1/4 TO 1 TABLET BY MOUTH DAILY NEEDED clonazepam 1 mg tablet 0.5 mg PO HS PRN Patient Comments: TAKE 1/2 TO 1 TABLET BY MOUTH AT BEDTIME NEEDED FOR SLEEP cyclosporine [Restasis] 0.05 % dropperette OPHTHALMIC (EYE) DAILY Patient Comments: INSTILL 1 DROP TWICE DAILY TO BOTH EYES polyethylene glycol 3350 17 gram/dose powder 17 g PO DAILY PRN Follow Up/Referrals: Kaykay Carranza MD [Referring] - Stand Alone Forms: [employer] Info Instructions
[2023-01-08 19:50] LABS: Basophils Absolute Auto 0.02 K/uL (0.00-0.30); Basophils Percent Auto 0.3 % (0.0-3.0); Eosinophils Absolute Auto 0.07 K/uL (0.00-0.50); Eosinophils Percent Auto 1.1 % (0.0-7.0); Hematocrit 43.3 % (33.0-51.0); Immature Granulocytes Abs Auto 0.04 K/uL (0.00-0.30); Immature Granulocytes Pct Auto 0.6 %; Lymphocytes Absolute Auto 2.14 K/uL (0.90-2.90); Lymphocytes Percent Auto 32.7 % (20-44); Mean Corpuscular HGB Conc 32 gm/dL (32-36); Mean Corpuscular Hemoglobin 30 pg (26-34); Mean Corpuscular Volume 94 fL (80-100); Monocytes Percent Auto 6.7 % (0.0-11.0); Neutrophils Absolute Auto 3.84 K/uL (1.7-7.0); Neutrophils Percent Auto 58.6 % (42.0-72.0); Platelet Count* 261 K/uL (140-440); RDW Coefficient of Variation % 14.4 % (11.5-15.5); White Blood Count* 6.55 K/uL (4.50-11.00)
[2023-01-08 20:04] LABS: Chloride* 105 mmol/L (96-114); Sodium* 138 mmol/L (135-149)
[2023-01-08 20:07] LABS: Anion Gap 5 mEq/L (7-15); Blood Urea Nitrogen* 24 mg/dL (7-30); Carbon Dioxide* 28 mmol/L (20-32); Creatinine* 0.6 mg/dL (0.5-1.5); Est. Creatinine Clearance* 36.95; Estimated Glomerular Filt Rate 96 ml/min; Glucose* 99 mg/dL (60-115); Slide Review Reflex No
[2023-01-08 20:08] LABS: Calcium* 9.9 mg/dL (8.4-10.6); D Dimer Quantitative* 0.58 ug/ml (0.00-0.50)
[2023-01-08 20:22] LABS: Troponin I* < 0.01 ng/mL (0.01-0.04)
--- NOTE | 2023-01-08 22:01 | ED.NURSE ---
pt decided not to have CT done.
== END 2023-01-08 22:26 | disposition home or self-care (01) ==
PROVIDERS: Emergency Provider Family Medicine
DX: G24.3 Spasmodic torticollis (principal)
CPT/HCPCS: 36415; 80048; 84484; 85025; 85379; 93005; 99283; 99284; A9270

== ENCOUNTER 2023-02-13 16:23 | Emergency (ER) | payer OTHER, SELFPAY ==
[2023-02-13 16:25] VITALS: BP 82/50; PULSE 88; RESP 16; TEMP 35.8; O2SAT 98; BMI 16.3
--- NOTE | 2023-02-13 16:38 | CRLHL7_ITS ---
For Patients: As a result of the Century Cures Act, medical imaging exams and procedure reports are released immediately into your electronic medical record. You may view this report before your referring provider. If you have questions, please contact your health care provider. INDICATION: Recurrent falls. Altered mental status. History of Parkinson`s disease with deep brain stimulators. TECHNIQUE: CT of the head without contrast. Coronal and sagittal reformats are included. COMPARISON: Head CT from 11/26/2021. FINDINGS: No acute intracranial hemorrhage. No mass effect or midline shift. Postsurgical changes of by frontal kathy hole craniotomies for subthalamic deep brain stimulator leads. No evidence of hemorrhage or other complication along the lead tracts. Postsurgical changes of right suboccipital craniectomy and cranioplasty reconstruction. Scattered white matter hypoattenuation, typical for chronic microvascular ischemic change. Mild generalized parenchymal volume loss. White matter is within normal limits for age. No acute osseous abnormalities. Mastoid air cells and paranasal sinuses are clear. Normal soft tissues. IMPRESSION: 1. No acute intracranial abnormalities. 2. Stable postop changes of bilateral subthalamic deep brain stimulator leads as well as a right suboccipital craniectomy site. Please note that all CT scans at this facility use dose modulation, iterative reconstruction, and/or weight-based dosing when appropriate to reduce radiation dose to as low as reasonably achievable. Dictated by Gavin Cai MD @ 02/13/2023 5:42:28 PM (Electronically Signed)
--- NOTE | 2023-02-13 17:46 | ED.GENADULT ---
HPI - General Adult General Time Seen by Provider: 18:25 Date Seen: 02/13/23 Chief complaint: Head Injury/Pain Stated complaint: Fall, head lac Time Seen by Provider: 02/13/23 16:37 Source: patient and RN notes reviewed Mode of arrival: ambulatory Limitations: no limitations History of Present Illness HPI narrative: Patient was seen after she had her head CT done. Nursing staff did triage her and I did order noncontrast head CT given her fall. This is a Parkinson's patient with a neurostimulator. She walked in to the edge of the door. She did not fall, no loss of consciousness. She believes her tetanus needs to be updated, nursing staff indeed did fine her last tetanus was 2011. She denies any other injuries, no neck pain. She does endorse that her speech has been abnormal for the last 3 days, not able to phonate or talk as loud as she normally does. She denies any difficulty swallowing, no dysphagia, no coughing or choking while swallowing. She has no pain, no sore throat. 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 She notes no visual changes, no changes in her arms or legs. She is ambulatory in the ED, did stand up and move around while I was in talking to her. Related Data Home Medications Medication Instructions Recorded Confirmed carbidopa 25 mg-levodopa 100 mg 0.5 tab PO Q2H 11/26/21 02/13/23 tablet carbidopa ER 23.75 mg-levodopa 95 2 cap PO Q2H 11/26/21 02/13/23 mg capsule,extended release (Rytary) clonazepam 1 mg tablet 0.5 mg PO HS PRN 11/26/21 02/13/23 cyclosporine 0.05 % eye drops in a 1 drp ophthalmic (eye) DAILY 11/26/21 02/13/23 dropperette (Restasis) lorazepam 1 mg tablet PO DAILY 11/26/21 polyethylene glycol 3350 17 17 g PO DAILY PRN 11/26/21 02/13/23 gram/dose oral powder Allergies Allergy/AdvReac Type Severity Reaction Status Date / Time iodine Allergy Verified 02/13/23 16:34 Sulfa (Sulfonamide Allergy Verified 02/13/23 16:34 Antibiotics) PFSH PFSH Social History Smoking Status: Former smoker Do you use any of these nicotine containing products: None Second hand tobacco smoke exposure: No How often do you have a drink containing alcohol: monthly or less How many standard drinks containing alcohol do you have on a typical day: 1 or 2 How often do you have six or more drinks on one occasion: Never AUDIT-C Alcohol total score: 1 Non-prescribed substance use: denies use service: No Exam Const: Vital Signs, click to edit/add: Vital Signs - 24 hr 02/13/23 16:25 Temperature 96.5 F L Pulse Rate [Pulse Oximeter] 88 Respiratory Rate 16 Blood Pressure [Ri ght Upper Arm] 82/50 L Pulse Oximetry 98 Oxygen Delivery Me thod Room Air This is a 72-year-old female that is alert, interactive, no apparent distress. She is advised that her head CT showing no acute intracranial pathology, no acute changes. She does have a neurostimulator in place. Pupils are equal round, extraocular muscles intact. She does seem to have a little less elevation of the right corner of her mouth when smiling but her states this is her baseline. Otherwise, seems to have symmetrical facial function. No drainage from nares or ear canals noted. Ears are atraumatic. No midline tenderness over neck, neck seems supple. She has a laceration over the right parietal scalp area, about 1 cm long. It was initially somewhat scabbed over, I did clean this with soap in the wound edges are not approximated after cleaning, did start mildly bleeding again. Discussed suturing versus aggie, they opted for aggie. Please see my note for the procedure. Lungs are clear good air entry, no tachypnea, CV regular rate and rhythm, no murmur, normal S1 and S2. Strength is about 4/5 and symmetric, note no tremors at this time. Again she is up ambulatory without any significant abnormality. Procedure note: 4 mL lidocaine 1% with epinephrine was drawn up, only 3 mL was needed locally to achieve anesthesia. The wound was cleaned with wound cleanser. Five aggie were placed with good wound approximation, she tolerated this well. Hemostasis was observed. Documenting provider has reviewed patient's vital signs: yes Course Course ED Course: Tetanus will be updated, will try to talk to Neurology about her to make sure that they do not have any other concerns for me about this speech. Would just like to run this by them. Consultations Consultation #1: Spoke with Neurology Dr. Cowart from [facility] regarding this case. He believes the phonation issues likely are resulting from her Parkinson's, the phonation issues proceeded her fall. He does not believe we need to do any further workup this evening, she needs to follow up with her Parkinson's neurologist. Will update her and discharge her. Time: 19:25 Vital Signs Vital signs: Initial Vital Signs Temperature 96.5 F L 02/13/23 16:25 Temperature Source Temporal Artery Scan 02/13/23 16:25 Pulse Rate 88 02/13/23 16:25 Respiratory Rate 16 02/13/23 16:25 Blood Pressure 82/50 L 02/13/23 16:25 Blood Pressure Mean 60 L 02/13/23 16:25 Blood Pressure Position Sitting 02/13/23 16:25 Pulse Oximetry 98 02/13/23 16:25 Oxygen Delivery Method Room Air 02/13/23 16:25 Vital Signs Temperature 96.5 F L 02/13/23 16:25 Pulse Rate 88 02/13/23 16:25 Respiratory Rate 16 02/13/23 16:25 Blood Pressure 82/50 L 02/13/23 16:25 Pulse Oximetry 98 02/13/23 16:25 Oxygen Delivery Method Room Air 02/13/23 16:25 Temperature 96.5 F L 02/13/23 16:25 Pulse Rate 88 02/13/23 16:25 Respiratory Rate 16 02/13/23 16:25 Blood Pressure 82/50 L 02/13/23 16:25 Pulse Oximetry 98 02/13/23 16:25 Oxygen Delivery Method Room Air 02/13/23 16:25 Medical Decision Making Imaging Data CT scan - head: Attestation: I have reviewed the pertinent imaging results. Radiologist's impression: Patient: JET BENJAMIN Facility:?[facility] Patient ID:?[id number] Site Patient ID:?[id number]. Site :?[id number] Study:?CT Head W/O-02/13/2023 5:10:10 PM Ordering Physician:?Panchito Hubbard Final Report: INDICATION: Recurrent falls. Altered mental status. History of Parkinson`s disease with deep brain stimulators. TECHNIQUE: CT of the head without contrast. Coronal and sagittal reformats are included. COMPARISON: Head CT from 11/26/2021. FINDINGS: No acute intracranial hemorrhage. No mass effect or midline shift. Postsurgical changes of by frontal kathy hole craniotomies for subthalamic deep brain stimulator leads. No evidence of hemorrhage or other complication along the lead tracts. Postsurgical changes of right suboccipital craniectomy and cranioplasty reconstruction. Scattered white matter hypoattenuation, typical for chronic microvascular ischemic change. Mild generalized parenchymal volume loss. White matter is within normal limits for age. No acute osseous abnormalities. Mastoid air cells and paranasal sinuses are clear. Normal soft tissues. IMPRESSION: 1. No acute intracranial abnormalities. 2. Stable postop changes of bilateral subthalamic deep brain stimulator leads as well as a right suboccipital craniectomy site. Please note that all CT scans at this facility use dose modulation, iterative reconstruction, and/or weight-based dosing when appropriate to reduce radiation dose to as low as reasonably achievable. Dictated by Gavin Cai MD @ 02/13/2023 5:42:28 PM (Electronic Signature) Discharge Plan Discharge Clinical Impression: Parkinson's disease, Laceration of scalp Patient Disposition: Home, Self-Care Condition: Stable Instructions: Staple Care (ED) Additional Instructions: May shower but be very careful to not disrupt the aggie with washing your hair, drying your hair or with attempts to come your hair. Need to schedule a clinic follow-up in about 1 weeks time to assess the wound for staple removal. If there is any concern regarding this wound for infection or other issues, please seek re-evaluation. As far as the phonation issues, this could be related to the Parkinson's disease. The neurologist that I talked to anaya did not think we needed to do any further workup here at this time based on the history provided. He does recommend that you talk to your normal neurologist tomorrow. Activity Level: Activity as Tolerated Prescriptions: No Action carbidopa-levodopa 25-100 mg tablet 0.5 tab PO Q2H Patient Comments: TAKE ONE-HALF TABLET BY MOUTH EVERY 2 HOURS WHILE AWAKE AND 1-2 TIMES OVERNIGHT NEEDED. UP TO 10 TIMES/DAY Rytary 23.75-95 mg capsule, extended release 2 cap PO Q2H Patient Comments: TAKE 2 CAPSULES BY MOUTH EVERY 2 HOURS WHILE AWAKE AND 1-2 TIMES OVERNIGHT NEEDED. UP TO 10 TIMES/DAY lorazepam 1 mg tablet PO DAILY Patient Comments: TAKE 1/4 TO 1 TABLET BY MOUTH DAILY NEEDED clonazepam 1 mg tablet 0.5 mg PO HS PRN Patient Comments: TAKE 1/2 TO 1 TABLET BY MOUTH AT BEDTIME NEEDED FOR SLEEP cyclosporine [Restasis] 0.05 % dropperette 1 drp OPHTHALMIC (EYE) DAILY Patient Comments: INSTILL 1 DROP TWICE DAILY TO BOTH EYES polyethylene glycol 3350 17 gram/dose powder 17 g PO DAILY PRN Follow Up/Referrals: Provider,Not a Local [Primary Care Provider] - Stand Alone Forms: [employer] Info Instructions
[2023-02-13] MEDS: TETANUS/DIPHTH/PERTUSSIS 0.5 ML SYRINGE IM (18:48)
== END 2023-02-13 19:36 | disposition home or self-care (01) ==
PROVIDERS: Emergency Provider Family Medicine
DX: S01.01XA Laceration without foreign body of scalp, initial encounter (principal); W01.10XA Fall on same level from slipping, tripping and stumbling with subsequent striking against unspecified object, initial encounter
CPT/HCPCS: 12001; 70450; 90471; 90715; 99283; 99284